=== PATIENT | female | born 1940 | race Caucasian/White ===

== ENCOUNTER → 2019-02-10 | Day surgery (SDC) | payer MEDICARE ==
[2019-01-20 14:35] LABS: BASOPHILS % 0.5 % (0.0-1.0); EOSINOPHILS # (AUTO) 0.1 (0.0-0.4); EOSINOPHILS % 0.6 % (0.0-6.0); HEMATOCRIT 46.3 % (34.2-44.1); HEMOGLOBIN 15.6 g/dL (12.0-16.0); LYMPHOCYTES # (AUTO) 0.6 (1.0-3.2); LYMPHOCYTES % 7.5 % (18.0-39.1); MEAN CORPUSCULAR HGB CONC 33.7 g/dL (31-35); MEAN CORPUSCULAR VOLUME 94.9 fL (81-99); MONOCYTES # (AUTO) 0.4 (0.2-0.8); MONOCYTES % 4.9 % (4.4-11.3); NEUTROPHILS # (AUTO) 7.3 (2.1-6.9); NEUTROPHILS % 85.9 % (38.7-80.0); PLATELET COUNT 198 x10e3/uL (140-360); RED BLOOD COUNT 4.88 x10e6/uL (3.6-5.1); RED CELL DISTRIBUTION WIDTH 13.2 % (11.7-14.4)
[~2019-02-10] MED LIST: ASPIR 8181 MG; BIOTIN2500 MCG PO; CYMBALTA20 MG PO; FENTANYL CITRATE/PF 100MCG/2 ML INJ ONE; FOLIC ACID1 MG PO; HYOSCYAMINE 0.125 MG TAB ONE; LEVOTHYROXINE112 MCG PO; LEVOTHYROXINE125 MCG PO; MELOXICAM15 MG PO; MELOXICAM7.5 MG PO; METHOTREXATE2.5 MG PO; MIDAZOLAM HCL 2 MG/2 ML VIAL ONE; NORCO 5-325 TA1 EACH PO; PANTOPRAZOLE SO40 MG PO; PREDNISONE5 MG PO; PROBIOTIC & AC1 EACH PO; PROPOFOL IV EMULSION 10 MG/ML 50 ML VIAL ONE; PROTONIX20 MG PO; TUMERIC PO; VITAMIN B-122000 MCG PO; VITAMIN D32000 UNI1 PO; ZETIA10 MG PO
--- OUTSIDE RECORDS SUMMARY | 2019-02-10 09:25 | XMS REPORT | Summary of Care ---
Author Author [facility] - Health Organization [facility] - Health Address Unknown Phone Unavailable Care Team Providers Care Trade Mark Attorney Name Role Phone Juan Carlos Jorgensen MD PCP Reason for Referral * (Routine) Referred By Contact Referred To Contact Status Reason Specialty Diagnoses / Procedures Juan Carlos Jorgensen MD [address] [place] [address] 25946 New Request Endoscopy Diagnoses Encounter for screening colonoscopy P rocedures COLONOSCOPY,SCREEN ING Preferred Location: Non-[facility] Reason for Visit * Reason Comments PAIN WITH URINATION REFERRAL colonscopy Encounter Details Care Team Description Date Type Department Juan Carlos Jorgensen MD [address] [place] [address] 77546 Pain with urination (Primary Dx); Acute cystitis with hematuria; Encounter for screening colonoscopy 01/18/2019 Office Visit [facility] Pediatric & Adult Primary Care-[address] [phone] Allergies Comments Active Allergy Reactions Severity Noted Date Sulfa (Sulfonamide Rash 03/04/2016 Antibiotics) documented as of this encounter (statuses as of 01/18/2019) Medications End Date Status Medication Sig Dispensed Refills Start Date Active DULOXETINE 30 mg TAKE ONE 180 capsule 3 capsuleIndications: 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 Active levothyroxine 100 mcg Take 1 tablet 90 tablet 2 tabletIndications: by mouth 8 Postablative every hypothyroidism morning. Active TURMERIC ORAL Take 1,500 mg 0 by mouth daily. Active cholecalciferol, vitamin Take 1,000 0 D3, (VITAMIN D3) 1,000 Units by unit tablet mouth daily. Active FOLIC ACID ORAL Take 800 mcg 0 by mouth daily. Active B.ani/L.aci/L.julia/L.plan/ Take by 0 L.Jones (PROBIOTIC FORMULA mouth daily. ORAL) Active HERBAL DRUGS 0 MISCIndications: beet root Active vitamin B-12 (VITAMIN Take 1,000 0 B-12) 1,000 mcg tablet mcg by mouth every other day. Active predniSONE 20 mg Take 2 60 tablet 1 tabletIndications: tablets by 9 Dysphagia, oropharyngeal mouth daily. phase Active predniSONE 10 mg Take 1 tablet 90 tablet 0 tabletIndications: by mouth 9 Dysphagia, oropharyngeal daily. phase Active BIOTIN ORAL Take 2,500 mg 0 by mouth daily. 01/25/2019 Active Nitrofurantoin&Nit. Take 1 14 capsule 0 Macrocryst 100 mg capsule by 9 capsuleIndications: Acute mouth 2 (two) cystitis with hematuria times daily for 7 days. documented as of this encounter (statuses as of 01/18/2019) Active Problems Problem Noted Date Postablative hypothyroidism 05/01/2018 documented as of this encounter (statuses as of 01/18/2019) Immunizations Name Administration Dates Next Due Influenza High Dose 03/09/2018 Influenza Virus Vaccine 03/20/2017 Pneumococcal 13 10/27/2017 Conjugate, PCV13 (Prevnar 13) documented as of this encounter Social History Date Tobacco Use Types Packs/Day Years Used Never Smoker Smokeless Tobacco: Never Used Drinks/Week oz/Week Comments Alcohol Use No Sex Assigned at Date Recorded Not on file Industry Job Start Date Occupation Not on file Not on file Not on file Travel End Travel History Travel Start No recent travel history available. documented as of this encounter Last Filed Vital Signs Reading Time Taken Comments Vital Sign 128/82 01/18/2019 10:40 AM CDT Blood Pressure 68 01/18/2019 10:40 AM CDT Pulse 36.2 C (97.1 F) 01/18/2019 10:40 AM CDT Temperature 18 01/18/2019 10:40 AM CDT Respiratory Rate - - Oxygen Saturation - - Inhaled Oxygen Concentration 70.2 kg (154 lb 11.2 oz) 01/18/2019 10:40 AM CDT Weight - - Height 27.4 11/02/2018 3:29 PM CDT Body Mass Index documented in this encounter Progress Notes * Juan Carlos Jorgensen MD - 01/18/2019 10:20 AM CDT Internal Medicine Clinic Note CC: increased frequency / burning on urination HPI: Genesis Perez is a 78 year old female here with c/o increased frequency and burning on urination that started 2 weeks ago. With right sided back pain fo r 3 days. Symptoms are associated with suprapubic discomfort and odor in the uri ne. Denies fevers, chills, flank pain, hematuria. Does have a hx of recurrent UT I. Does not have vaginal discharge. Reports that during last UTI nitrofurantoin was ineffective. Is due for colonoscopy, sees Dr. Barber in [place]. Last colonoscopy was 5 year s ago, polyps were removed. Allergies as of 01/18/2019 - Reviewed 01/18/2019 Allergen Reaction Noted Sulfa (sulfonamide antibiotics) Rash 03/04/2016 Outpatient Medications Marked as Taking for the 01/18/19 encounter (Office Visit) with Juan Carlos Jorgensen MD Medication Sig Dispense Refill BIOTIN ORAL Take 2,500 mg by mouth daily. HERBAL DRUGS MISC vitamin B-12 (VITAMIN B-12) 1,000 mcg tablet Take 1,000 mcg by mouth every o ther day. B.ani/L.aci/L.julia/L.plan/L.Jones (PROBIOTIC FORMULA ORAL) Take by mouth daily . cholecalciferol, vitamin D3, (VITAMIN D3) 1,000 unit tablet Take 1,000 Units by mouth daily. FOLIC ACID ORAL Take 800 mcg by mouth daily. TURMERIC ORAL Take 1,500 mg by mouth daily. levothyroxine 100 mcg tablet Take 1 tablet by mouth every morning. 90 tablet 2 rosuvastatin 10 mg tablet Take 1 tablet by mouth at bedtime. 90 tablet 3 DULOXETINE 30 mg capsule TAKE ONE CAPSULE BY MOUTH TWICE DAILY 180 capsule 3 Past Medical History: Diagnosis Date Depression Graves disease hypothyroid s/p ablation Hyperlipidemia Osteoarthritis Polymyositis Sarcoidosis Social History Socioeconomic History Marital status: Spouse name: Not on file Number of children: Not on file Years of education: Not on file Highest education level: Not on file Occupational History Not on file Social Needs Financial resource strain: Not on file Food insecurity: Worry: Not on file Inability: Not on file Transportation needs: Medical: Not on file Non-medical: Not on file Tobacco Use Smoking status: Never Smoker Smokeless tobacco: Never Used Substance and Sexual Activity Alcohol use: No Drug use: Yes Types: Morphine Sexual activity: Never Lifestyle Physical activity: Days per week: Not on file Minutes per session: Not on file Stress: Not on file Relationships Social connections: Talks on phone: Not on file Gets together: Not on file Attends advent service: Not on file Active member of club or organization: Not on file Attends meetings of clubs or organizations: Not on file Relationship status: Not on file Intimate partner violence: Fear of current or ex partner: Not on file Emotionally abused: Not on file Physically abused: Not on file Forced sexual activity: Not on file Other Topics Concern Not on file Social History Narrative 2017: and has 2 sons ages 46 and 49. 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 Review of Systems (-)=Negative,(+)=Positive General: (-) fever, (-) chills, (-) weight change (-)anorexia HEENT: (-) visual disturbance (-) congestion (-) sore throat Cardio: (-) chest pain, (-) palpitations, (-) syncope (-) leg swelling Resp: (-) cough, (-) shortness of breath (-) wheezing GI: (-) abdominal pain, (-) nausea, (-) vomiting, (-) diarrhea, (-) constipation , (-) melena : as per hpi VALENTIN: (+) muscle pain, (-) joint pain, (-) claudication Skin: (-) rash, (-) lesion Heme: (-) anemia (-) bruises Neuro: (-) numbness (-) tingling (-)focal weakness PE Blood pressure 128/82, pulse 68, temperature 36.2 C (97.1 F), temperature so urce Temporal Artery, resp. rate 18, weight 70.2 kg (154 lb 11.2 oz). General: AAOx3 in no acute distress, not sick looking ENT: Moist mucus membranes, op clear Eyes: Pupils BERL, RESP: Lungs CTAB, no wheezes/rales/rhonchi CV: RRR, no m/g/r GI: Soft, nt, nd, +bs, no suprapubic or CVA tenderness MSK: No c/c/e, 2+ pedal pulses bilaterally Skin: No rash or bruises, good skin turgor Labs: urine dipstick POCT U SP GRAV (mg/dl) Date Value 01/18/2019 1.03 (A) POCT PH U (mg/dl) Date Value 01/18/2019 5 POCT U LEUK EST (no units) Date Value 01/18/2019 2+ POCT U NIT (no units) Date Value 01/18/2019 Negative POCT U PROT (no units) Date Value 01/18/2019 30+ POCT U GLU (no units) Date Value 01/18/2019 50 POCT U KETONE (no units) Date Value 01/18/2019 small+ POCT U UROBILI (mg/dl) Date Value 01/18/2019 Normal POCT U BILI (no units) Date Value 01/18/2019 Negative POCT U BLD (no units) Date Value 01/18/2019 50+ POCT U COLOR (no units) Date Value 01/18/2019 yellow POCT U APPEAR (no units) Date Value 01/18/2019 cloudy Assessment and Plan Genesis Perez is a 78 year old female here with UTI. 1. Pain with urination - POCT URINALYSIS W SPECIFIC GRAVITY 2. Acute cystitis with hematuria - URINE CULTURE - Nitrofurantoin&Nit. Macrocryst 100 mg capsule; Take 1 capsule by mouth 2 (two) times daily for 7 days. Dispense: 14 capsule; Refill: 0 - increase fluids, otc azo as needed - gave ER warnings 3. Encounter for screening colonoscopy - COLONOSCOPY,SCREENING Preferred Location: Non-[facility] - Complete antibiotic as prescribed - Empty bladder frequently - Increase water intake to 64 oz or more and keep well hydrated Contact clinic if fever is > than 100.5 while on antibiotic treatment Contact clinic if pink or red colored urine continues after 3 days of antibiotic treatment Return to nearest hospital if febrile, lethargy, inability to tolerate oral inta ke,vomiting, or other worrisome symptoms. Patient instructed to call or return to clinic if symptoms worsen or fail to imp rove as expected. Plan of care discussed with the patient and the patient verbal ized understanding and agreement. AVS given, handout on UTI provided FUP prn or worsening Juan Carlos Jorgensen MD Internal Medicine [facility] Adult Primary [facility] Scribe's Attestation Shannon Joe , am scribing for, and in the presence of, Juan Carlos Jorgensen MD who performed the services described here-in. Shannon Campbell, January 18, 2019, 10:15 AM Physician's Attestation Juan Carlos Joe MD, personally performed and/or ordered the services described i n this documentation made by the scribe, Shannon Campbell, in my presence, and i t is both accurate and complete. Juan Carlos Jorgensen MD Clinical Copying Machine Repairer , Internal Medicine [facility] January 18, 2019, 1:21 PM documented in this encounter Plan of Treatment Care Team Description Date Type Specialty Liliana Worthy MD [address] [place] [address] [phone] 02/17/2019 Office Visit Pulmonary Disease Juan Carlos Jorgensen MD [address] [place] [address] [phone] 04/16/2019 Office Visit Internal Medicine Gomez Cano DO [address] [place] [address] [phone] 04/29/2019 Office Visit Rheumatology Date/Time Name Type Priority Associated Diagnoses 01/18/2019 11:24 AM CDT URINE CULTURE LAB Routine Acute cystitis with hematuria 01/18/2019 11:33 AM CDT COLONOSCOPY,SCREENING PROCEDURES Routine Encounter for screening Preferred Location: colonoscopy Non-[facility] Health Maintenance Due Date Last Done Comments DTaP,Tdap,and Td Vaccines 1961 (1 - Tdap) Zoster Recombinant 1992 Vaccine (SHINGRIX) (1 of 2) Osteoporosis Screening 2007 Medicare Wellness Visit 10/27/2018 10/27/2017 PNEUMOCOCCAL VACCINES 65+ 10/27/2018 10/27/2017 (2 of 2 - PPSV23) INFLUENZA VACCINE 02/21/2019 03/09/2018, 03/20/2017 documented as of this encounter Procedures Comments Procedure Name Priority Date/Time Associated Diagnosis POCT URINALYSIS Routine 01/18/2019 Pain with urination documented in this encounter Results * POCT URINALYSIS W SPECIFIC GRAVITY (01/18/2019) POCT U SP GRAV 1.03 (A) 1.005 - 1.025 mg/dl POCT PH U 5 5 - 8 mg/dl POCT U LEUK EST 2+ Negative - Negative POCT U NIT Negative Negative - Negative POCT U PROT 30+ Negative - Negative POCT U GLU 50 Negative - Negative POCT U KETONE small+ Negative - Negative POCT U UROBILI Normal 0.2 - 1 mg/dl POCT U BILI Negative Negative - Negative POCT U BLD 50+ Negative - Negative POCT U COLOR yellow POCT U APPEAR cloudy Specimen Urine - URINE, CLEAN CATCH documented in this encounter Visit Diagnoses Diagnosis Pain with urination - Primary Acute cystitis with hematuria Acute cystitis Encounter for screening colonoscopy Special screening for malignant neoplasms, colon documented in this encounter Insurance Type Payer Benefit Subscriber ID Effective Phone Address Plan / Dates Group Medicare MEDICARE MEDICARE xxxxxxxxxxx 2007- [phone] [address] Present [id number] VENITA VELAZQUEZ [address] Medicare Supplement [facility] [id number] 2016-P [address] [employer]ALTH[employer]ARE resent [id number] MEDICARE [place] SUPPLEMENT VENITA DEGROOT [id number] documented as of this encounter
--- OUTSIDE RECORDS SUMMARY | 2019-02-10 09:25 | XMS REPORT | Summary of Care ---
Author Author [facility] - Health Organization [facility] - Health Address Unknown Phone Unavailable Care Team Providers Care Medical Biller/Coder Name Role Phone Juan Carlos Jorgensen MD PCP Reason for Referral * (Routine) Referred By Contact Referred To Contact Status Reason Specialty Diagnoses / Procedures Juan Carlos Jorgensen MD [address] [place] [address] New Request Endoscopy Diagnoses Encounter for screening colonoscopy P rocedures COLONOSCOPY,SCREEN ING Preferred Location: Non-[facility] Reason for Visit * Reason Comments PAIN WITH URINATION REFERRAL colonscopy Encounter Details Care Team Description Date Type Department Juan Carlos Jorgensen MD [address] [place] [address] Pain with urination (Primary Dx); Acute cystitis with hematuria; Encounter for screening colonoscopy 01/18/2019 Office Visit [facility] Pediatric & Adult Primary Care-[address] [phone] Allergies Comments Active Allergy Reactions Severity Noted [...] due for colonoscopy, sees Dr. Barber in [place]. 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 Review of Systems (-)=Negative,(+)=Positive [...] for screening colonoscopy - COLONOSCOPY,SCREENING Preferred Location: Non-[facility] - Complete antibiotic as prescribed - [...] worsening Juan Carlos Jorgensen MD Internal Medicine [facility] Pediatric [facility] Adult Primary Care Scribe's Attestation [...] and complete. Juan Carlos Jorgensen MD Clinical Consulting Psychiatrist , Internal Medicine [facility] January 18, 2019, 1:21 PM documented in this encounter Plan of Treatment Care Team Description Date Type Specialty Liliana Worthy MD [address] [place] [address] [phone] 02/17/2019 Office Visit Pulmonary Disease Juan Carlos Jorgensen MD [address] [place] [address] [phone] 04/16/2019 Office Visit Internal Medicine Gomez Cano DO [address] [place] [address] [phone] 04/29/2019 Office Visit Rheumatology Date/Time Name Type Priority Associated Diagnoses 01/18/2019 11:24 AM CDT URINE CULTURE LAB Routine Acute cystitis with hematuria 01/18/2019 11:33 AM CDT COLONOSCOPY,SCREENING PROCEDURES Routine Encounter for screening Preferred Location: colonoscopy Non-[facility] Health Maintenance Due Date Last Done [...] Dates Group Medicare MEDICARE MEDICARE xxxxxxxxxxx 2007- [phone] [address] & B Present [id number] V[place]ITA [place] [address] Medicare Supplement [facility] [id number] 2016-P [address] [facility] resent [id number] MEDICARE [place] SUPPLEMENT V[place]ITA DEGROOT [id number] documented as of this encounter
--- OUTSIDE RECORDS SUMMARY | 2019-02-10 09:25 | XMS REPORT | Summary of Care ---
Author Author [facility] - Health Organization [facility] - Health Address Unknown Phone Unavailable Care Team Providers Care Stock Control Clerk Name Role Phone Juan Carlos Jorgensen MD PCP Reason for Visit * Reason Comments Medicare Annual Wellness Encounter Details Care Team Description Date Type Department Juan Carlos Jorgensen MD [address] [place] [address] Medicare Annual Wellness 01/21/2019 Pre Visit [facility] Pediatric [facility] Outreach Adult Primary [facility] [address] [place] [phone] Allergies Comments Active Allergy Reactions Severity Noted Date Sulfa (Sulfonamide Rash 03/04/2016 Antibiotics) documented as of this encounter (statuses as of 01/22/2019) Medications End Date Status Medication Sig Dispensed [...] as of this encounter (statuses as of 01/22/2019) Active Problems Problem Noted Date Postablative hypothyroidism 05/01/2018 documented as of this encounter (statuses as of 01/22/2019) Immunizations Name Administration Dates Next Due Influenza [...] of this encounter Last Filed Vital Signs Not on filedocumented in this encounter Plan of Treatment Care Team Description Date Type Specialty Liliana Worthy MD [address] [place] [address] [phone] 02/17/2019 Office Visit Pulmonary Disease [facility], Medicare Wellness 02/25/2019 Nurse Visit Internal Medicine Juan Carlos Jorgensen MD [address] [place] [address] [phone] 04/16/2019 Office Visit Internal Medicine Gomez Cano DO [facility] [place] [address] [phone] 04/29/2019 Office Visit Rheumatology Health Maintenance Due Date Last Done Comments DTaP,Tdap,and Td Vaccines 1961 (1 - Tdap) Zoster Recombinant 1992 Vaccine (SHINGRIX) (1 of 2) Osteoporosis Screening 2007 Medicare Wellness Visit 10/27/2018 10/27/2017 PNEUMOCOCCAL VACCINES 65+ 10/27/2018 10/27/2017 (2 of 2 - PPSV23) INFLUENZA VACCINE 02/21/2019 03/09/2018, 03/20/2017 documented as of this encounter Results Not on filedocumented in this encounter Insurance Type Payer Benefit Subscriber ID Effective Phone Address Plan / Dates Group Medicare MEDICARE MEDICARE xxxxxxxxxxx 2007- [phone] [address] & B Present [id number] V[place]ITA [place] [address] Medicare Supplement [facility] [id number] 2016-P [address] [facility] resent [id number] MEDICARE [place] SUPPLEMENT V[place]ITA DEGROOT [id number] documented as of this encounter
--- OUTSIDE RECORDS SUMMARY | 2019-02-10 09:25 | XMS REPORT | Summary of Care ---
Author Author [facility] - Health Organization [facility] - Health Address Unknown Phone Unavailable Care Team Providers Care Plastic Roller Name Role Phone Juan Carlos Jorgensen MD PCP Reason for Visit * Reason Comments Medicare Annual Wellness Encounter Details Care Team Description Date Type Department Juan Carlos Jorgensen MD [address] [place] [address] Medicare Annual Wellness 01/21/2019 Pre Visit [facility] [address] [place] [address] Allergies Comments Active Allergy Reactions Severity Noted Date Sulfa (Sulfonamide Rash 03/04/2016 Antibiotics) documented as of this encounter (statuses as of 01/21/2019) Medications End Date Status Medication Sig Dispensed [...] as of this encounter (statuses as of 01/21/2019) Active Problems Problem Noted Date Postablative hypothyroidism 05/01/2018 documented as of this encounter (statuses as of 01/21/2019) Immunizations Name Administration Dates Next Due Influenza [...] Description Date Type Specialty Liliana Worthy MD [address] [place] [address] [phone] 02/17/2019 Office Visit Pulmonary Disease Juan Carlos Jorgensen MD [address] [place] [address] [phone] 04/16/2019 Office Visit Internal Medicine Gomez Cano DO [address] [place], [place] [phone] 04/29/2019 Office Visit Rheumatology Health Maintenance Due [...] Dates Group Medicare MEDICARE MEDICARE xxxxxxxxxxx 2007- [phone] [address] A & B Present [id number] V[place]ITA [place]AZ[place] [address] Medicare Supplement [facility] [id number] 2016-P [address] [facility] resent [id number] MEDICARE [place] SUPPLEMENT V[place]ITA DEGROOT [id number] documented as of this encounter
--- OUTSIDE RECORDS SUMMARY | 2019-02-10 09:25 | XMS REPORT | Summary of Care ---
Author Author [facility] - Health Organization [facility] - [employer] Address Unknown Phone Unavailable Care Team Providers Care Jitterbug Operator Name Role Phone Juan Carlos Jorgensen MD PCP Encounter Details Care Team Description Date Type Department Juan Carlos Jorgensen MD [address] [place] [address] 01/25/2019 Patient Secure [facility] [address] [place] [address] Allergies Comments Active Allergy Reactions Severity Noted Date Sulfa (Sulfonamide Rash 03/04/2016 Antibiotics) documented as of this encounter (statuses as of 01/25/2019) Medications End Date Status Medication Sig Dispensed [...] as of this encounter (statuses as of 01/25/2019) Active Problems Problem Noted Date Postablative hypothyroidism 05/01/2018 documented as of this encounter (statuses as of 01/25/2019) Immunizations Name Administration Dates Next Due Influenza [...] Description Date [place] [address] [place] [address] [phone] 02/17/2019 Office Visit Pulmonary Disease [facility], Medicare Wellness 02/25/2019 Nurse Visit Internal Medicine Juan Carlos Jorgensen MD [address] [place], [place] 293476 04/16/2019 Office Visit Internal Medicine Gomez Cano DO [address] [place] [address] [phone] 04/29/2019 Office Visit Rheumatology Health Maintenance Due [...] Dates Group Medicare MEDICARE MEDICARE xxxxxxxxxxx 2007- [phone] [address] A & B Present [id number] V[place]ITA [place]AZ[place] [address] Medicare Supplement [facility] [id number] 2016-P [address] [facility] resent [id number] MEDICARE [place] SUPPLEMENT V[place]ITA DEGROOT [id number] documented as of this encounter
--- OUTSIDE RECORDS SUMMARY | 2019-02-10 09:25 | XMS REPORT ---
Author Author [facility] Address Unknown Phone Unavailable Care Team Providers Care Chief Underwriter Name Role Phone Unavailable Unavailable Problems This patient has no known problems. Allergies, Adverse Reactions, Alerts This patient has no known allergies or adverse reactions. Medications This patient has no known medications.
--- OUTSIDE RECORDS SUMMARY | 2019-02-10 09:25 | XMS REPORT | Summary of Care ---
Author Author [facility] - Health Organization [facility] - Health Address Unknown Phone Unavailable Care Team Providers Care Moose Hunter Name Role Phone Juan Carlos Jorgensen MD PCP Reason for Visit * Reason Comments Assessment urinary concerns Encounter Details Care Team Description Date Type Department Juan Carlos Jorgensen MD [address] [place] [address] Assessment (urinary concerns) 01/25/2019 Telephone [facility] [address] [place] [address] Allergies Comments Active Allergy Reactions [...] Take 2,500 mg 0 by mouth daily. Active Nitrofurantoin&Nit. Take 1 10 capsule 0 Macrocryst 100 mg capsule by 9 capsuleIndications: Acute mouth 2 (two) cystitis with hematuria times daily. 01/25/2019 Discontinued Nitrofurantoin&Nit. Take 1 14 capsule 0 Macrocryst [...] Description Date Type Specialty Liliana Worthy MD [address] [place] [address] [phone] 02/17/2019 Office Visit Pulmonary Disease [facility], Medicare Wellness 02/25/2019 Nurse Visit Internal Medicine Juan Carlos Jorgensen MD [address] [place] [address] [phone] 04/16/2019 Office Visit Internal Medicine Gomez Cano DO [address] [place] [address] [phone] 04/29/2019 Office Visit Rheumatology Health Maintenance Due Date Last Done Comments DTaP,Tdap,and Td Vaccines 1961 (1 - Tdap) Zoster Recombinant 1992 Vaccine (SHINGRIX) (1 of 2) Osteoporosis Screening 2007 Medicare Wellness Visit 10/27/2018 10/27/2017 PNEUMOCOCCAL VACCINES 65+ 10/27/2018 10/27/2017 (2 of 2 - PPSV23) INFLUENZA VACCINE 02/21/2019 03/09/2018, 03/20/2017 documented as of this encounter Results Not on filedocumented in this encounter Visit Diagnoses Diagnosis Acute cystitis with hematuria Acute cystitis documented in this encounter Insurance Type Payer Benefit Subscriber ID Effective Phone Address Plan / Dates Group Medicare MEDICARE MEDICARE xxxxxxxxxxx 2007- [phone] Present [id number] V[place]ITA [place]QUE[place] [id number] Medicare Supplement [facility] [id number] 2016-P [address] resent [id number] MEDICARE [place] SUPPLEMENT V[place]GROOT [id number] documented as of this encounter
--- OUTSIDE RECORDS SUMMARY | 2019-02-10 09:25 | XMS REPORT | Clinical Summary ---
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 Phone Asked, No Pcp PCP Unavailable Allergies Comments Active Allergy Reactions Severity Noted Date Sulfa (Sulfonamide 03/04/2016 Antibiotics) Medications End Date Status Medication Sig Dispensed Refills Start Date Active ELIQUIS 5 mg tablet TK 1 T PO BID 3 6 Active DULoxetine (CYMBALTA) 30 TK ONE C PO 7 MG capsule BID 6 Active ZETIA 10 mg tablet TK 1 T PO 2 ONCE D 6 Active metoprolol tartrate TK 1 T PO BID 3 (LOPRESSOR) 25 MG tablet 6 Active pantoprazole (PROTONIX) TK 1 T PO QD 2 40 MG EC tablet 6 Active SYNTHROID 50 mcg tablet Take 1 tablet 30 tablet 6 (50 mcg 6 total) by mouth every morning. Active bisacodyl (DULCOLAX) 5 mg Take 5 mg by 0 EC tablet mouth daily as needed for constipation. Active Problems Not on file Family History Medical History Relation Name Comments Heart disease Father Heart disease Mother Cancer Sister Relation Name Status Comments Father Mother Sister Social History Date Tobacco Use Types Packs/Day Years Used Never Smoker Sex Assigned at Date Recorded Not on file Industry Job Start Date Occupation Not on file Not on file Not on file Travel End Travel History Travel Start No recent travel history available. Last Filed Vital Signs Not on file Plan of Treatment Health Maintenance Due Date Last Done Comments COLONOSCOPY SCREENING 1992 SHINGLES VACCINES (#1) 1992 65+ PNEUMOCOCCAL VACCINE 2007 (1 of 2 - PCV13) INFLUENZA VACCINE 01/21/2019 03/27/2010 Results Not on fileafter 02/09/2018 Insurance Type Payer Benefit Subscriber ID Effective Phone Address Plan / Dates Group PPO BCBS MEDICARE BLUE xxxxxxxxxxxx 2015-P MEDICARE resent ADVANTAGE PPO Advance Directives For more information, please contact: [phone] Patient Spiritual Advisor Explanation Type Date Recorded Advance Directives, Living Will and Medical Power of Manager [employer] Director
--- OUTSIDE RECORDS SUMMARY | 2019-02-10 09:25 | XMS REPORT | Summary of Care ---
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 Name Role Phone Juan Carlos Jorgensen MD PCP Reason for Visit * Reason Comments Medicare Annual Wellness Encounter Details Care Team Description Date Type Department Juan Carlos Jorgensen MD [address] [place] [address] Medicare Annual Wellness 01/21/2019 Pre Visit [facility] [address] [place] [address] Allergies Comments Active Allergy Reactions [...] Description Date Type Specialty Liliana Worthy MD [address] [place] [address] [phone] 02/17/2019 Office Visit Pulmonary Disease [facility], Medicare Wellness 02/25/2019 Nurse Visit Internal Medicine Juan Carlos Jorgensen MD [address] [place] [address] [phone] 04/16/2019 Office Visit Internal Medicine Gomez Cano DO [facility] [place] [address] [phone] 04/29/2019 Office Visit Rheumatology Health Maintenance Due [...] Dates Group Medicare MEDICARE MEDICARE xxxxxxxxxxx 2007- [phone] & B Present [id number] [place]ITA [place] [id number] Medicare Supplement [facility] [id number] 2016-P [address] [employer]ARE resent [id number] MEDICARE [place]PP[place] DEGR[place] [id number] documented as of this encounter
[2019-02-10 12:54] VITALS: BP 127/75
--- NOTE | 2019-02-10 13:05 | Operative Report ---
DATE OF PROCEDURE: 02/10/2019 SURGEON: Marco Barber MD PROCEDURES: Colonoscopy and polypectomy. INDICATIONS FOR COLONOSCOPY: Surveillance colonoscopy, personal history of colon polyps. MEDICATIONS: The patient was done under MAC, please see anesthesiologist's note. PROCEDURE IN DETAIL: With the patient in the left lateral decubitus position, a flexible fiberoptic Olympus colonoscope was inserted into the rectum with ease and advanced all the way to the cecum. Mucosa overlying the cecum appeared to be within normal limits. One polyp was snared and site was hemoclipped in the ascending colon. The transverse and descending and sigmoid appeared to be within normal limits. Two polyps were hot biopsied from the rectum. The scope was then retroflexed into the distal rectum and the area around the dentate line appeared to be within normal limits. The scope was then straightened out, it was subsequently withdrawn, and the patient tolerated the procedure well. IMPRESSION: 1. Ascending colon polyp snared, site hemoclipped. 2. Rectal polyps x2, hot biopsied. PLAN: Follow up histology. Initiate high-fiber, low-fat diet. Initiate high-fiber supplement. The patient might benefit from a followup colonoscopy in 5 years. Marco Barber MD [facility] [place] /[id number] cc: Jay Lowry MD
== END | disposition home or self-care (01) ==
LOC: OR 09:04
PROVIDERS: ATTEND Internal Medicine Gastroenterology
DX: D12.2 Benign neoplasm of ascending colon (principal); K62.1 Rectal polyp; K59.00 Constipation, unspecified; Z86.010 Personal history of colon polyps; R19.7 Diarrhea, unspecified; Z88.2 Allergy status to sulfonamides; E03.9 Hypothyroidism, unspecified; K21.9 Gastro-esophageal reflux disease without esophagitis; D86.9 Sarcoidosis, unspecified; M33.20 Polymyositis, organ involvement unspecified; Z01.810 Encounter for preprocedural cardiovascular examination; Z01.812 Encounter for preprocedural laboratory examination; R03.0 Elevated blood-pressure reading, without diagnosis of hypertension
CPT/HCPCS: 36415; 45384; 45385; 85025; 88305; 93005; J2250; J2704; J3010; 45378